=== PATIENT | female | born 1975 ===

== ENCOUNTER 2021-02-10 20:44 | Emergency (ER) | payer MEDICAID ==
[2021-02-10] MEDS ORDERED: Sodium Chloride 0.9% 1,000 ML IV ONE (20:57)
[2021-02-10] MEDS ORDERED: lamoTRIgine 100 MG Tab PO ONE (21:17)
[2021-02-10] MEDS ORDERED: Ondansetron 4 MG/2 ML SDV IVPUSH ONE (21:38)
[2021-02-10] MEDS ORDERED: Acetaminophen 500 MG Tab PO ONE ×2 (21:39→22:20)
[2021-02-10 22:00] LABS: ANION GAP 18.7 mEq/L (7-13); CHLORIDE,CL 106 mmol/L (98-107); SODIUM,NA 143 mmol/L (136-145)
--- NOTE | 2021-02-10 22:30 | CT ---
PROCEDURE INFORMATION: Exam: CT Head Without Contrast Exam date and time: 02/10/2021 10:00 PM Age: 45 years old Clinical indication: Other: Seizure; HX of seizure and on medications TECHNIQUE: Imaging protocol: Computed tomography of the head without contrast. Radiation optimization: All CT scans at this facility use at least one of these dose optimization techniques: automated exposure control; mA and/or kV adjustment per patient size (includes targeted exams where dose is matched to clinical indication); or iterative reconstruction. COMPARISON: No relevant prior studies available. FINDINGS: Brain: There is hypoattenuation seen within the left frontal lobe along the tract of the presumed ICP bolt. Correlate clinically. Cerebral ventricles: No ventriculomegaly. Paranasal sinuses: Visualized sinuses are unremarkable. No fluid levels. Mastoid air cells: Visualized mastoid air cells are well aerated. Bones/joints: Bone plate is seen in the frontal calvaria covering a healed trephine hole . Soft tissues: Unremarkable. IMPRESSION: There are no acute intracranial findings.
--- NOTE | 2021-02-10 22:33 | EDM.PDOC ---
ED HPI GENERAL MEDICAL PROBLEM - General Chief Complaint: Neurological Problem Stated Complaint: BY AMBULANCE Time Seen by Provider: 02/10/21 21:00 Source of Information: Reports: Patient, EMS, Family (Sister), RN, RN Notes Reviewed History Limitations: Reports: No Limitations - History of Present Illness INITIAL COMMENTS - FREE TEXT/NARRATIVE: Xavier is a 46 y/o female with a history of seizure who presents to the ED via [facility] due to seizure-like activity. The seizure was witnessed by her sister who states she noticed the patient fell forward in her chair and ex hibited tonic-clonic seizure movement that lasted "longer than her normal seizures." The patient states she follows with Dr. Reddy, neurologist at [facility], and has been on Lamictal which she takes every night; she took her dose last night, per normal. She is unsure of her last seizure, but notes it has been longer than a year. She denies recent illness, fever, shaking chills, vision changes, chest pain, palpitations, abdominal pain, nausea, or vomiting. She does attest to headache, light sensitivity, and left lateral facial pain where she struck a metal bar while falling from her seat. Patient denies tobacco or alcohol use; she does attest to occasional cannabis use. Left Jaw Pain Score (Numeric/FACES): 8 Headache Pain Score (Numeric/FACES): 8 - Related Data Allergies Allergy/AdvReac Type Severity Reaction Status Date / Time No Known Allergies Allergy Verified 02/10/21 21:19 Home Meds: Home Meds Citalopram [Citalopram HBr] 1 tab PO BEDTIME 02/10/21 [History] lamoTRIgine [Lamictal] 200 mg PO BEDTIME 02/10/21 [History] traZODone 50 mg PO BEDTIME PRN 02/10/21 [History] Past Medical History Neurological History: Reports: Seizure, Other (See Below) Other Neuro History: Brain tumor diagnosed at age 33. Psychiatric History: Reports: Depression Oncologic (Cancer) History: Reports: Brain - Past Surgical History Female Surgical History: Reports: Hysterectomy Neurological Surgical History: Reports: Other (See Below) Other Neurological Surgeries/Procedures: Tumor resection x2. Social & Family History - Family History Family Medical History: No Pertinent Family History - Tobacco Use Tobacco Use Status *Q: Never Tobacco User - Caffeine Use Caffeine Use: Reports: Soda - Recreational Drug Use Recreational Drug Use: Yes Recreational Drug Type: Reports: Marijuana/Hashish ED ROS GENERAL - Review of Systems Review Of Systems: Comprehensive ROS is negative, except as noted in HPI. - Physical Exam Exam: See Below Exam Limited By: No Limitations General Appearance: Alert, No Apparent Distress Eye Exam: Bilateral Eye: EOMI, Normal Inspection, PERRL (4mm) Throat/Mouth: Normal Inspection, Normal Oropharynx, Normal Voice, No Airway Compromise Head Exam: Normocephalic, Facial Ecchymosis (To left lateral periorbital area), Facial Swelling (To left lateral periorbital area), Facial Tenderness (To left lateral periorbital area). No: Facial Abrasions, Facial Lacerations Neck: Normal Inspection, Supple, Non-Tender, Full Range of Motion, Other (No cervical point tenderness, full range of motion). No: Lymphadenopathy (L), Lymphadenopathy (R), Tender Lateral, Tender Midline Respiratory/Chest: No Respiratory Distress, Lungs Clear, Normal Breath Sounds, No Accessory Muscle Use, Chest Non-Tender Cardiovascular: Normal Peripheral Pulses, Regular Rate, Rhythm, No Edema, No Gallop, No JVD, No Murmur, No Rub GI/Abdominal: Normal Bowel Sounds, Soft, Non-Tender, No Distention, No Abnormal Bruit, No Mass, Pelvis Stable Neuro Exam (Abbreviated): Alert, Oriented, CN II-XII Intact, Normal Cognition, Normal Gait, Normal Reflexes, No Motor/Sensory Deficits Back Exam: Normal Inspection, Full Range of Motion Extremities: Normal Inspection, Normal Range of Motion, Non-Tender, No Pedal Edema, Normal Capillary Refill Psychiatric: Normal Affect, Normal Mood Skin Exam: Warm, Dry, Intact, No Rash, Ecchymosis (To left lateral periorbital area), Erythema (To left lateral periorbital area). No: Mottled, Pallor, Petechiae Course - Vital Signs Last Recorded V/S: Last Vital Signs Temp 97.8 F 02/10/21 20:46 Pulse 86 02/10/21 20:46 Resp 16 02/10/21 20:46 BP 90/67 02/10/21 20:46 Pulse Ox 99 02/10/21 20:46 - Orders/Labs/Meds Labs: Laboratory Tests 02/10/21 02/10/21 02/10/21 Range/Units 21:25 21:25 21:25 WBC 5.2 (5.0-10.0) 10^3/uL RBC 4.50 (4.2-5.4) 10^6/uL Hgb 11.1 L (12.0-16.0) g/dL Hct 36.4 L (37.0-47.0) % MCV 80.9 (80-100) fL MCH 24.7 L (27.0-34.0) pg MCHC 30.5 L (33.0-35.0) g/dL Plt Count 237 (150-450) 10^3/uL Neut % (Auto) 49.9 (42.2-75.2) % Lymph % (Auto) 38.9 (20.5-50.1) % Cocke % (Auto) 9.4 H (2-8) % Eos % (Auto) 1.2 (1.0-3.0) % Baso % (Auto) 0.6 (0.0-1.0) % Sodium 143 (136-145) mmol/L Potassium 3.7 (3.5-5.1) mmol/L Chloride 106 (98-107) mmol/L Carbon Dioxide 22 (21-32) mmol/L Anion Gap 18.7 H (7-13) mEq/L BUN 7 (7-18) mg/dL Creatinine 0.76 (0.55-1.02) mg/dL Est Cr Clr Drug Dosing 76.37 mL/min Estimated GFR (MDRD) > 60 BUN/Creatinine Ratio 9.2 (No establ ref range) Glucose 85 (70-99) mg/dL Lactic Acid 2.5 H* (0.4-2.0) mmol/L Calcium 7.4 L (8.5-10.1) mg/dL Magnesium 2.0 (1.8-2.4) mg/dL Total Bilirubin 0.2 (0.2-1.0) mg/dL AST 12 L (15-37) U/L ALT 17 (14-59) U/L Alkaline Phosphatase 93 (46-116) U/L C-Reactive Protein < 0.2 (0.0-0.9) mg/dL Total Protein 5.9 L (6.4-8.2) g/dL Albumin 3.4 (3.4-5.0) g/dL Globulin 2.5 Albumin/Globulin Ratio 1.4 Ethyl Alcohol < 3 (0) mg/dL Meds: Medications Discontinued Medications Generic Name Dose Route Start Last Admin Trade Name Shailesh PRN Reason Stop Dose Admin Acetaminophen 1,000 mg 02/10/21 21:39 02/10/21 21:45 Acetaminophen 500 Mg Tab PO 02/10/21 21:40 Not Given ONETIME ONE Acetaminophen 1,000 mg 02/10/21 22:20 02/10/21 22:10 Acetaminophen 500 Mg Tab PO 02/10/21 22:21 1,000 mg ONETIME ONE Administration Sodium Chloride 1,000 mls @ 999 mls/hr 02/10/21 20:57 02/10/21 22:05 Normal Saline IV 02/10/21 21:57 Infused .BOLUS ONE Infusion Lamotrigine 200 mg 02/10/21 21:17 02/10/21 21:45 Lamotrigine 100 Mg Tab PO 02/10/21 21:18 Not Given ONETIME ONE Ondansetron HCl 4 mg 02/10/21 21:38 02/10/21 21:45 Ondansetron 4 Mg/2 Ml Sdv IVPUSH 02/10/21 21:39 Not Given ONETIME ONE - Radiology Interpretation Free Text/Narrative:: [facility] Final Radiology Report Call: [phone] assistance Online chat: [email or web address] Name: XAVIER LABOY Age: 45Years F Date: 02/10/2021 SSN: -- : [id number] Study: CT MAX FACIAL SINUS WO CONT Requesting Physician: Sarah Mendez Images: [id number] Addl Studies: Provided Clinical History: Seizure; Hx of seizure and on medications Contrast: Without Contrast Medium: Contrast Amount: Contrast Method: CONFIDENTIALITY STATEMENT This report is intended only for use by the referring physician, and only in accordance with law. If you received this in error, call [phone]. Page 1 of 1 PROCEDURE INFORMATION: Exam: CT Maxillofacial Without Contrast Exam date and time: 02/10/2021 10:00 PM Age: 45 years old Clinical indication: Other: Seizure; HX of seizure and on medications TECHNIQUE: Imaging protocol: Computed tomography images of the face without contrast. Radiation optimization: All CT scans at this facility use at least one of these dose optimization techniques: automated exposure control; mA and/or kV adjustment per patient size (includes targeted exams where dose is matched to clinical indication); or iterative reconstruction. COMPARISON: No relevant prior studies available. FINDINGS: Orbital cavity: Orbits are normal. Globes are unremarkable. Bones/joints: No acute fracture. Paranasal sinuses: Normal. No air-fluid levels. Soft tissues: There is mild swelling and bruising seen within the left maxillary region. IMPRESSION: There are no acute osseous findings. Thank you for allowing us to participate in the care of your patient. Dictated and Authenticated by: Chandrakant Holbrook MD 02/10/2021 10:31 PM Central Time ([place] & [place]) [facility] Final Radiology Report Call: [phone] assistance Online chat: [email or web address] Name: XAVIER LABOY Age: 45Years F Date: 02/10/2021 SSN: -- : [id number] Study: CT HEAD WO CONT Requesting Physician: Sarah Mendez Images: 150 Addl Studies: Provided Clinical History: Seizure; Hx of seizure and on medications Contrast: Without Contrast Medium: Contrast Amount: Contrast Method: Page 1 of 2 PROCEDURE INFORMATION: Exam: CT Head Without Contrast Exam date and time: 02/10/2021 10:00 PM Age: 45 years old Clinical indication: Other: Seizure; HX of seizure and on medications TECHNIQUE: Imaging protocol: Computed tomography of the head without contrast. Radiation optimization: All CT scans at this facility use at least one of these dose optimization techniques: automated exposure control; mA and/or kV adjustment per patient size (includes targeted exams where dose is matched to clinical indication); or iterative reconstruction. COMPARISON: No relevant prior studies available. FINDINGS: Brain: There is hypoattenuation seen within the left frontal lobe along the tract of the presumed ICP bolt. Correlate clinically. Cerebral ventricles: No ventriculomegaly. Paranasal sinuses: Visualized sinuses are unremarkable. No fluid levels. Mastoid air cells: Visualized mastoid air cells are well aerated. Bones/joints: Bone plate is seen in the frontal calvaria covering a healed trephine hole . Soft tissues: Unremarkable. IMPRESSION: There are no acute intracranial findings. Thank you for allowing us to participate in the care of your patient. Dictated and Authenticated by: Chandrakant Holbrook MD 02/10/2021 10:30 PM Central Time ([place] & [place]) - Re-Assessments/Exams Free Text/Narrative Re-Assessment/Exam: 02/10/21 NS bolus initiated following interview. CT head and maxillofacial CT ordered. Patient refusing lamotrigine as she states she can only take "Lamictal" as generic medications make her ill. Patient now refusing Zofran 4mg IVP and acetaminophen. She states, "No one is helping me around here. I am in pain and no one cares." Nursing Program Manager discussed plan of care with patient and her sister. Sister has encouraged patient to stay until CT read. Patient continues to bring up the fact that she will not take the lamotrigine. Patient states "..I want to be knocked out and stay there." Patient left AMA following CT. Departure - Departure Time of Disposition: 22:33 Disposition: Against Medical Advice 07 Clinical Impression: Seizure, Normocytic hypochromic anemia - Discharge Information Referrals: PCP,None [Primary Care Provider] - Forms: ED Department Discharge, Refusal of Care AMA Sepsis Event Note (ED) - Evaluation Sepsis Screening Result: No Definite Risk
== END 2021-02-10 22:35 | disposition left against medical advice (07) ==
LOC: DL.ED 20:44
DX: R56.9 Unspecified convulsions (principal); D61.9 Aplastic anemia, unspecified
CPT/HCPCS: 36415; 70450; 70486; 80053; 80307; 83605; 83735; 85025; 86140; 99283; 99284-25; A9270-GY; J7030